=== PATIENT | female | born 1990 | race Caucasian/White ===

== ENCOUNTER 2016-11-04 11:46 | Emergency (ER) | payer BC ==
[~2016-11-04] VITALS: Ht 172.7 cm; Wt 129.3 kg
--- NOTE | ~2016-11-04 | CR282 ---
[facility] A Service of [facility] RADIOLOGY TEXT RESULTS PATIENT: RJ PERALTA LOCATION: [facility] : [birth year] UNIT #: [id number] AGE: [address]: Deanna Riley SEX: F ORDER DR: [id number] [facility] [address] [place], [place] [address] [id number] MR#: [id number] Acc #: [id number] NAME: RJ PERALTA : 1990 SEX: F STUDY DATE/TIME: 11/04/2016 13:45 UNIT: [facility] ROOM: STUDY DESCRIPTION: CR Wrist Min 3 View Rt Attending Physician: Deanna Riley Pa-C Ordering Physician: Ho Hussein M.D. Primary Care Physician: Generic Doctor Not In System MEDICAL IMAGING REPORT This report is preliminary unless electronic signature is present EXAM Right wrist, 3 views. HISTORY Slammed wrist in door 11/03/2016, swelling about the wrist. FINDINGS Three views of the right wrist demonstrates mild soft tissue swelling about the wrist. No acute fracture or malalignment. Minimal arthritic changes at the scaphotrapezial joint. Bone mineralization appears normal. IMPRESSION Mild scaphotrapezial arthritic changes. No acute findings with exception of mild soft tissue swelling. Dictated by... Giselle Murcia M.D. THIS IS AN ELECTRONICALLY VERIFIED REPORT Giselle Murcia M.D. at 11/05/2016 5:08 PM LILY/paula TD: 11/05/2016 08:21 JOB #: [id number] MEDICAL IMAGING REPORT Page 1 of 1 COPY
== END 2016-11-04 14:34 | disposition home or self-care (01) ==
LOC: CED 11:46 → CFTX 11:46
DX: S66.911A Strain of unspecified muscle, fascia and tendon at wrist and hand level, right hand, initial encounter (principal); F17.210 Nicotine dependence, cigarettes, uncomplicated; W23.0XXA Caught, crushed, jammed, or pinched between moving objects, initial encounter; Y92.009 Unspecified place in unspecified non-institutional (private) residence as the place of occurrence of the external cause
CPT/HCPCS: 29125; 73110; 99283